=== PATIENT | female | born 1995 | race Caucasian/White ===

== ENCOUNTER 2020-10-10 16:51 | Outpatient (CLI) | payer MEDICAID, SELFPAY ==
[2020-10-10] VITALS (7 sets, daily range): BP systolic 0–127; BP diastolic 0–71; PULSE 93–101; RESP 17; TEMP 36.6; BMI 47.5
[2020-10-10 17:32] LABS: Add Urine Microscopic? NO
[2020-10-10 17:48] LABS: Basophils % 0.1 %; Eosinophils % 0.5 %; Hematocrit 36.3 % (37.0-47.0); Hemoglobin 11.7 g/dL (11.5-15.3); Lymphocytes # 1.3 10^3/uL (0.8-4.8); Lymphocytes % 14.9 %; Mean Corpuscular HGB Conc 32.2 g/dL (30.0-36.0); Mean Corpuscular Hemoglobin 25.8 pg (28.0-34.0); Mean Platelet Volume 12.1 fL (7.4-10.4); Monocytes # 0.6 10^3/uL (0.2-0.9); Monocytes % 7.4 %; Neutrophils # 6.38 10^3/uL (1.8-7.7); Neutrophils % 76.3 %; Nucleated Red Blood Cells % 0 %; Platelet Count 232 10^3/cmm (130-400); Red Blood Count 4.54 10^6/uL (4.1-5.3); Red Cell Distribution Width 14.3 % (12.1-15.1); White Blood Count 8.4 10^3/uL (4.0-10.0)
[2020-10-10 17:52] LABS: Bilirubin Urine Neg (Negative); Blood Urine Neg (Negative); Glucose Urine UA Norm (Normal); Ketones Urine 1+ (Negative); Nitrate Urine Negative (Negative); Protein Urine Neg (Negative); Specific Gravity, Urine 1.025 (1.005-1.030); Urine Appearance SL Hazy (CLEAR); Urine Color Yellow (Yellow); pH Urine 5 (5-7)
[2020-10-10 17:53] LABS: Add Urine Culture? No; Bacteria Urine TRACE /hpf; Leukocyte Esterase Urine Negative (Negative); Urobilinogen Urine 1 mg/dL (Negative); WBC Urine 0-4 /hpf (0-5)
[2020-10-10 17:59] LABS: Alanine Aminotransferase 22 U/L (0-33); Albumin Level 3.4 g/dL (3.5-5.2); Alkaline Phosphatase 188 IU/L (35-105); Anion Gap 15.2 (5-19); Aspartate Amino Transferase 26 U/L (0-32); Blood Urea Nitrogen 8 mg/dL (6-20); Calcium 9.3 mg/dL (8.5-10.5); Carbon Dioxide 21 mmol/L (22-29); Chloride 105 mmol/L (98-107); Globulin 2.7 g/dL (1.3-4.6); Glomerular Filtration Rate 149.1 mL/min (90-130); Glucose 110 mg/dL (65-115); Osmolality Calculated 283 mOsm/kg (285-295); Potassium 4.2 mmol/L (3.5-5.1); Sodium 137 mmol/L (136-145); Total Bilirubin 0.2 mg/dL (0.15-1.2); Total Protein 6.1 g/dL (6.6-8.7); Uric Acid 5.8 mg/dL (2.4-5.7)
[2020-10-10 18:02] LABS: Urine Creatinine 222 mg/dL (28-217)
[2020-10-10 18:04] LABS: Urine Protein Random 23 mg/dL
--- NOTE | 2020-10-10 18:27 | PC.NURSE ---
THIS GAS STATION ATTENDANT TALKED WITH PT AND HER MOTHER AND TOLD THEM TO CALL DR. DURAN'S OFFICE TOMORROW AND MAKE APPOINTMENT FOR SATURDAY NEXT WEEK FOR FOLLOW UP AND SO THAT THEY CAN SCHEDULE HER SECTION. REINFORCED THE IMPORTANCE OF THIS AND THEY BOTH VOICED UNDERSTANDING AND I TOLD THEM IF THEY HAVE TROUBLE TO CALL ME HERE IN OB AND I WOULD HELP HER MAKE APPOINTMENT.
== END 2020-10-10 18:21 | disposition home or self-care (01) ==
LOC: OPOB 16:59 → OBGYN 10-11 07:48
PROVIDERS: PCP Family Medicine; Visit Provider Family Medicine
DX: O16.9 Unspecified maternal hypertension, unspecified trimester (principal)
CPT/HCPCS: 36415; 59025; 80053; 81001; 81003; 82570; 84156; 84550; 85025; 99211

== ENCOUNTER 2020-10-29 22:13 | Inpatient (IN) | payer MEDICAID, SELFPAY ==
[2020-10-29 22:19] VITALS: BMI 48.8
[2020-10-29 23:01] LABS: Basophils % 0.1 %; Eosinophils % 0.5 %; Hematocrit 35.2 % (37.0-47.0); Hemoglobin 11.6 g/dL (11.5-15.3); Lymphocytes # 1.4 10^3/uL (0.8-4.8); Lymphocytes % 17.6 %; Mean Corpuscular Hemoglobin 25.8 pg (28.0-34.0); Mean Corpuscular Volume 78.4 fL (81-99); Mean Platelet Volume 11.8 fL (7.4-10.4); Monocytes # 0.6 10^3/uL (0.2-0.9); Monocytes % 7.2 %; Neutrophils # 5.78 10^3/uL (1.8-7.7); Nucleated Red Blood Cells % 0 %; Platelet Count 216 10^3/cmm (130-400); Red Blood Count 4.49 10^6/uL (4.1-5.3); Red Cell Distribution Width 15.2 % (12.1-15.1); White Blood Count 7.8 10^3/uL (4.0-10.0)
--- NOTE | 2020-10-29 23:04 | P.ANESASSM_ITS ---
Pre-Anesthetic Assessment Pre-Anesthetic Assessment: Height/Weight: Height 1.57 m Preop Diagnosis: previous Proposed Procedure: Was Beta Kurt taken within 24 hours: N/A Social: Social History: No alcohol and No tobacco Exam: Pre-Anes Outpt Exam: alert, oriented x 3, clear to auscultation bilaterally and regular rate & rhythm Airway: Submandibular: WNL Cervical ROM: WNL MP: 3 Dentition: Full Pulmonary: Pulmonary: None reported CV/HEM: CV/HEM: HTN (Early in this but resolved and on no meds for HTN) : : None reported Hepatic: Hepatic: None reported GI: GI: GERD Musc/skel: Musc/skel: None reported Neuropsych: Neuropsych: Anxiety Anesthetic Plan: ASA status: 2 Anesthesia: Eval. for regional block and Regional (specify below) Risk of > 500 ml blood loss (7ml/kg in children): Yes, adequate IV access and fluids planned Data Anesthesia CBC & Chem 7: 10/29/20 22:40 Other Labs: Laboratory Results - last 48 hr 10/29/20 22:40 WBC 7.8 RBC 4.49 Hgb 11.6 Hct 35.2 L MCV 78.4 L MCH 25.8 L MCHC 33.0 RDW 15.2 H Plt Count 216 MPV 11.8 H Neut % (Auto) 74.0 Lymph % (Auto) 17.6 [place] % (Auto) 7.2 Eos % (Auto) 0.5 Baso % (Auto) 0.1 Neut # (Auto) 5.78 Lymph # (Auto) 1.4 [place] # (Auto) 0.6 Eos # (Auto) 0.0 Baso # (Auto) 0.0 Nucleated RBC % (auto) 0 Nucleated RBCs # 0.0 Cardiac Studies: No Data to Display
--- NOTE | 2020-10-29 23:14 | P.HP_ITS ---
Providers/Chief Complaint Admitting Physician: Madeline Landis MD Primary Care Provider: Madeline Landis MD Chief Complaint: PROM History of Present Illness Brina Loyd is a 25 year old female G5, P3 at 40 weeks 1 day gestation who presented to labor and delivery complaining of leaking fluid. She has a scheduled repeat section with bilateral tubal ligation on Saturday. She had insufficient care -not showing up for multiple visits reportedly due to a lack of having a vehicle. She states that her water broke around 2100 this evening. She is not having any contractions. She has good movement. Review of Systems Eyes: Denies: change in vision or eye discomfort ENMT: Denies: throat pain or hoarseness Card: Reports: swelling of feet/ankles; Denies: chest pain or palpitations Resp: Denies: dyspnea, productive cough or non-productive cough GI: Denies: abdominal pain, nausea or vomiting : Reports: vaginal discharge (Clear fluid); Denies: flank pain Musc: Reports: back pain; Denies: extremity pain or limited range of motion Skin/Breast: Denies: rash Neuro: Denies: lack of coordination or behavioral changes Psych: Denies: change in appetite Endo: Reports: tired all the time; Denies: polyuria or polydipsia PFSH Acute PFSH: Medical History (Updated 10/29/20 @ 23:43 by Madeline Landis MD) Anxiety and depression Surgical History (Updated 10/29/20 @ 23:19 by Madeline Landis MD) Hx laparoscopic cholecystectomy Previous section Female Reproductive History: : 5 Para: 3 Spontaneous abortions: Yes Other female reproductive history: The patient's BRANDEN is 10/28/2020 by an 11-week 4-day ultrasound. She presented to labor and delivery complaining of loss of fluid. She felt like her water broke around 2100 hrs. this evening. She has had no contractions. She has had good movement. She has had no bleeding. She has had insufficient care and just had her Covid swab and scheduled at her visit 2 days ago. For this reason her Covid swab is not yet resulted. She is GBS negative Vitals/I&O/Wt Weight last 48 hrs Weight 267 lb Physical Exam HENMT: COMMON NORMALS: normocephalic and atraumatic Eye: COMMON NORMALS: Equal, round and reactive pupils present and EOMs intact bilaterally GENERAL EYE: appearance normal, both eyes and all related structures Lymph: LYMPHATIC: lymphadenopathy Chest: COMMONS NORMALS: normal inspection of the chest Resp: COMMON NORMALS: normal respiratory effort and clear to auscultation bilaterally Cardio: COMMON NORMALS: regular rate and regular rhythm GI: COMMON NORMALS: non-tender INSPECTION: Yes normal to inspection and Yes other (Gravid) Extremity: GENERAL: Yes normal exam except as noted and Yes edema Neuro: SENSORIUM/ORIENTATION: Yes alert, Yes oriented to person and Yes oriented to place Psych: COMMON NORMALS: mental status grossly normal and normal affect ATTITUDE: Yes calm Data : 10/29/20 22:40 A&P Assessment and plan (1) Previous section: Plan for repeat section Status: Acute (2) Anxiety and depression: Controlled on Lexapro Status: Acute (3) with insufficient care: Patient refused to do her glucose tolerance test. She missed many [facility] visits reportedly due to lack of transportation. She claims to have done her 4 times daily glucose monitoring at home but I never saw a record of this for physical evidence on her fingertips. Status: Acute (4) Encounter for sterilization: Patient still desires permanent surgical sterilization Status: Acute (5) Post-term , 40-42 weeks of gestation: Status: Acute (6) SROM (spontaneous rupture of membranes): Patient has a history of prior section so we will plan to proceed with repeat section Status: Acute Attestations Medical Necessity Statement*: Routine surgery and postoperative care Coding Level of Care Code Acute Personal Care Aide for [facility] Fwd Exam Comprehensive Diagnoses Previous section Z98.891 Anxiety and depression F41.9; F32.9 with insufficient care O09.30 Encounter for sterilization Z30.2 Post-term , 40-42 weeks of gestation O48.0 SROM (spontaneous rupture of membranes)
[2020-10-29] MEDS: metoclopramide 5 mg/mL SDV 2 mL 10 MG IVP (23:15)
[2020-10-29] MEDS: citric acid-sodium citrate 30 mL UDC PO (23:15)
[2020-10-29] MEDS: famotidine 20 mg/2 mL INJ IVP (23:15)
[2020-10-30] VITALS (26 sets, daily range): BP systolic 112–145; BP diastolic 56–83; PULSE 60–102; RESP 14–21; TEMP 36.3–36.9; O2SAT 93–98
--- NOTE | 2020-10-30 01:03 | P.OP_ITS ---
Operative Report Date of procedure: October 30, 2020 Pre-op Diagnosis: previous Pre-op Diagnosis: IUP at 40 weeks 1 day gestation with SROM Post-op diagnosis: same Procedure Done: Repeat low transverse section Via Pfannenstiel skin incision Bilateral tubal ligation Specimens removed/disposition: Vertex female 3460gm , 7 pounds 10 ounces, Apgars 9 and 9 Pathology: Segments of right and left fallopian tubes Anesthesia: Other (Spinal) Estimated blood loss (mL): 300 IV fluids (mL): 1,500 Urine output (mL): 150 Complications: None Condition: stable Disposition: floor Procedure: After informed consent the patient was taken to the main OR where spinal anesthesia was administered. She was prepped and draped in normal sterile fashion in dorsal supine position with a left lateral tilt. After verifying adequate spinal anesthesia a Pfannenstiel skin incision was made through the previous scar and carried through to the underlying layer of fascia sharply. The fascial incision was then extended laterally using the Mayos. Fas jus was grasped with Mu clamps. The rectus muscles were dissected off taking care to avoid injury to the underlying tissue. The peritoneum was then entered bluntly and the incision site was manually stretched. The bladder blade was inserted. The vesicouterine peritoneum was identified and entered sharply using the Metzenbaums. The bladder flap was then created digitally. The bladder blade was then reinserted. Uterine incision was made in a transverse fashion in the lower uterine segment. Amniotic rupture of membranes was performed using an Allis clamp and there was clear fluid noted. The 's head was delivered atraumatically followed by immediate delivery of the rest of the without complication. The was suctioned at delivery and the cord was clamped and cut. The was handed to the waiting pediatric nurse. The placenta was then delivered using fundal pressure. The uterus was then exteriorized from the abdomen and a dry sponge was used to clear the uterus of clots and debris. The bladder blade was reinserted and the uterine incision was repaired using 0 chromic in a running fashion. A second layer of the same suture was used in an imbricating manner. The right fallopian tube was then grasped with a Anna and a proximal portion of the tube was ligated and excised. Cut portions of the tube were coagulated using the Bovie and there was good hemostasis. Tubal ostia were seen. Segment of tube was sent to pathology. The left fallopian tube was then grasped with a [place] and a midportion of the tube was ligated and excised. The cut portions of the tube were coagulated using the Bovie. Tubal ostia were identified. Section of the tube was sent to pathology. The uterus was then returned to the abdomen. Irrigation was used to clear the gutters of clots and debris. Uterine incision was inspected for hemostasis. There was a small amount of bleeding from the bladder flap that was coagulated using the Bovie. The peritoneum was then reapproximated using 4-0 Vicryl in a running fashion. The subfascial tissue was inspected for hemostasis and any small bleeders were coagulated using the Bovie. The fascia was then reapproxi mated using 0 Vicryl in a running fashion. Irrigation was then used to cleanse the subcutaneous tissue. Any small bleeders were coagulated using the Bovie and the subcutaneous tissue was reapproximated using 4-0 Vicryl in a running fashion. The skin was then reapproximated using 4-0 Vicryl on a Rohit needle. Steri-Strips and a pressure bandage were applied and patient went to recovery in stable condition Sponge instrument and needle counts were correct
--- NOTE | 2020-10-30 01:30 | P.PCN_ITS ---
PACU note PACU note: VSS, Good respiratory effort, report to ENRICHMENT TEACHER Post-Anesthesia Exam: awake Disposition: back to floor
--- NOTE | 2020-10-30 01:30 | PM.PACU ---
PACU note PACU note: VSS, Good respiratory effort, report to ENVIRONMENTAL STUDIES FACULTY MEMBER Post-Anesthesia Exam: awake Disposition: back to floor
[2020-10-30] MEDS: dextrose 5%-lactated ringers 1,000 ML 125 ML IV ×2 (03:30→10:40)
[2020-10-30] MEDS: promethazine 25 mg Tablet 12.5 MG PO (03:30)
--- NOTE | 2020-10-30 06:27 | PC.NURSE ---
DFS CONTACTED FOR INSUFFICIENT CARE. [facility] COD CLERK WILL BE FOLLOWING UP BEFORE DISCHARGE.
[2020-10-30] MEDS: ketorolac 30 mg/mL INJ IVP (07:06)
--- NOTE | 2020-10-30 09:13 | ANE.PACU2 ---
Inpatient post-anesthesia follow up: Airway intact: Yes Vital signs: Temperature 98.4 F Pulse Rate 82 Respiratory Rate 16 Blood Pressure 118/73 Pulse Oximetry 97 Oxygen Delivery Me thod Room Air Oxygen Flow Rate Fraction of Inspir ed Oxygen Hydration adequate: Yes Nausea and vomiting: Yes (Some nausea, seemed controlled) Pain level: 2 Mental status: Baseline
[2020-10-30 14:04] LABS: Hematocrit 32.3 % (37.0-47.0); Hemoglobin 10.3 g/dL (11.5-15.3); Mean Corpuscular HGB Conc 31.9 g/dL (30.0-36.0); Mean Corpuscular Hemoglobin 25.6 pg (28.0-34.0); Mean Corpuscular Volume 80.3 fL (81-99); Mean Platelet Volume 11.8 fL (7.4-10.4); Platelet Count 181 10^3/cmm (130-400); Red Blood Count 4.02 10^6/uL (4.1-5.3); Red Cell Distribution Width 15.4 % (12.1-15.1); White Blood Count 9.3 10^3/uL (4.0-10.0)
[2020-10-30] MEDS: ibuprofen 800 mg tablet PO (16:38)
[2020-10-30] MEDS: docusate sodium 100 mg Capsule PO (18:15)
[2020-10-30] MEDS: ferrous sulfate EC 325 mg Tablet PO (18:15)
[2020-10-30] MEDS: acetaminophen 325 mg Tablet 650 MG PO (23:45)
[2020-10-31 04:11] VITALS: BP 120/75; PULSE 93; RESP 14; TEMP 36.8
[2020-10-31] MEDS: ferrous sulfate EC 325 mg Tablet PO (07:18)
[2020-10-31] MEDS: prenatal vitamin Capsule 1 CAP PO (07:18)
[2020-10-31] MEDS: ibuprofen 800 mg tablet PO ×3 (07:19→21:21)
[2020-10-31] MEDS: docusate sodium 100 mg Capsule PO ×2 (07:19→17:36)
[2020-10-31 10:00] VITALS: BP 129/83; PULSE 98; RESP 16; TEMP 36.7; O2SAT 97
--- NOTE | 2020-10-31 12:33 | P.PN_ITS ---
Subjective Subjective: Interval history: Postop day #1 doing well. Patient is voiding, passing gas, tolerating a regular diet. Vitals/I&O/Wt Last Vital Signs Temp 98.1 F 10/31/20 10:00 Pulse 98 10/31/20 10:00 Resp 16 10/31/20 10:00 BP 129/83 10/31/20 10:00 Pulse Ox 97 10/31/20 10:00 10/30/20 10/31/20 10/31/20 22:59 06:59 14:59 Output Total 1150 / 1450 1600 / 3050 Balance -1150 / -387.500 -1600 / -1987.500 Weight last 48 hrs Weight 267 lb Physical Exam Const: COMMON NORMALS: no acute distress GENERAL APPEARANCE: cooperative and comfortable HENMT: COMMON NORMALS: normocephalic HEAD & SCALP: normocephalic Resp: COMMON NORMALS: normal respiratory effort Cardio: COMMON NORMALS: regular rate and regular rhythm RATE: regular rate RHYTHM: regular rhythm GI: COMMON NORMALS: Soft to palpation INSPECTION: Yes incision (Steri- Strips rather moist otherwise clean and intact) and No GI erythema present PALPATION: Yes Soft to palpation and Yes Tenderness to palpation present (GI) (Appropriate postoperative) Extremity: GENERAL: Yes edema Urinary Catheter Management^: Umanzor: Cath Placed During This Visit: yes, but has since been removed by the nurse Reason for Continuing Indwelling Catheter: Decision to DC Catheter Urinary Catheter Date of Insertion: 10/30/20 Urinary Catheter Time of Insertion: 00:00 Date Urinary Catheter Removed: 10/30/20 Time Urinary Catheter Discontinued: 16:41 Data : 10/30/20 13:35 A&P Assessment and plan (1) Status post repeat low transverse section: Postop day #1 doing well. Continue routine care Status: Acute (2) Encounter for sterilization: Status: Acute Attestations Medical Necessity Statement*: Routine postoperative care Coding Level of Care Code Acute Motor Route Carrier for Molly Fwd Diagnoses Status post repeat low transverse section Z98.891 Encounter for sterilization Z30.2
[2020-10-31] MEDS: lanolin oint 7 gm 1 APPLIC TOPICAL (15:47)
[2020-10-31 15:48] VITALS: BP 117/78; PULSE 88; RESP 16; TEMP 36.7; O2SAT 95
[2020-10-31] MEDS: acetaminophen 325 mg Tablet 650 MG PO (17:35)
[2020-10-31 22:07] VITALS: BP 122/81; PULSE 72; RESP 16; TEMP 36.8
[2020-11-01 04:11] VITALS: BP 112/76; PULSE 82; RESP 14; TEMP 36.9
[2020-11-01] MEDS: docusate sodium 100 mg Capsule PO (09:05)
[2020-11-01] MEDS: ibuprofen 800 mg tablet PO (09:05)
[2020-11-01] MEDS: prenatal vitamin Capsule 1 CAP PO (09:05)
[2020-11-01 10:47] VITALS: BP 114/79; PULSE 106; RESP 16; TEMP 36.7
--- NOTE | 2020-11-01 12:30 | PM.OBGYDC ---
Discharge Providers LABORATORY ANIMAL FACILITY SUPERVISOR Date of Admission: 10/29/20 22:13 Date of Discharge: 11/01/20 Attending Provider at Admission: Madeline Landis MD Attending Provider at Discharge: Madeline Landis MD Primary Care Provider: Madeline Landis MD Diagnoses at Discharge Discharge Diagnosis (1) Status post repeat low transverse section: Status: Acute (2) Encounter for sterilization: Status: Acute Reason for Visit Reason for Visit: PROM Hospital Course Hospital Course This is a 25-year-old G5 now P4 who had spontaneous rupture of membranes. She underwent a repeat low transverse section along with a bilateral tubal ligation. Postoperatively she did well. She was ambulating, tolerating a regular diet, had good pain control with just ibuprofen and was requesting discharge home. Information Peripartum Data: Delivery Method: Section Physical Exam Const: COMMON NORMALS: no acute distress GENERAL APPEARANCE: cooperative and comfortable GI: COMMON NORMALS: Soft to palpation INSPECTION: Yes incision (Clean and intact, Steri-Strips moist) PALPATION: Yes Soft to palpation, No Tenderness to palpation present (GI) and No Guarding due to palpation present (GI) Extremity: COMMON NORMALS: negative for no calf tenderness GENERAL: Yes edema Urinary Catheter Management^: Umanzor: Cath Placed During This Visit: yes, but has since been removed by the nurse Reason for Continuing Indwelling Catheter: Decision to DC Catheter Urinary Catheter Date of Insertion: 10/30/20 Urinary Catheter Time of Insertion: 00:00 Date Urinary Catheter Removed: 10/30/20 Time Urinary Catheter Discontinued: 16:41 Discharge Data Data Completed and Pending: Pending at discharge Category Date Time Status Pathology: Surgic al [PTH] Routine Pth 10/30/20 02:22 Received Vitals: Last Vital Signs Temp 98.0 F 11/01/20 10:47 Pulse 106 H 11/01/20 10:47 Resp 16 11/01/20 10:47 BP 114/79 11/01/20 10:47 Pulse Ox 95 10/31/20 15:48 Discharge Plan Discharge Patient Disposition: Home Condition: Stable Prescriptions: New ibuprofen 800 mg Tablet 800 mg PO TID PRN (Reason: Abdominal Pain) Qty: 40 RF: 0 DOK 100 mg Capsule 100 mg PO BID Qty: 60 RF: 0 Continued Lexapro 1 tab PO DAILY RF: 0 Discharge Orders: Discharge Order (Routine); Ordered 11/01/20 Ordered By: Madeline Landis Discharge Diet: Usual diet Discharge Activity: Limit activity as instructed Patient Instructions: Bleeding (DC), OB Discharge Report, OB Food/Drug Interaction Guide, OB Home Care, OB Proud Parent Packet, OB Vaginal Deliveries Discharge Attestations LABORATORY ANIMAL FACILITY SUPERVISOR Time Spent in Discharge Care*: less than 30 min Coding Level of Care Code Acute Drywall Foreman for Chg Fwd Diagnoses Status post repeat low transverse section Z98.891 Encounter for sterilization Z30.2
[2020-11-01 13:08] VITALS: BP 111/74; PULSE 97; RESP 16; TEMP 36.9
== END 2020-11-01 14:05 | disposition home or self-care (01) | DRG 785 ==
LOC: OPOB 22:14 → OBGYN 22:14
PROVIDERS: Admitting Provider Family Medicine; PCP Family Medicine; Visit Provider Family Medicine
PROC: (CPT 59514; principal; 2020-10-29 23:20)
DX: O42.02 Full-term premature rupture of membranes, onset of labor within 24 hours of rupture (principal); Z3A.40 40 weeks gestation of pregnancy; Z37.0 Single live birth; O65.5 Obstructed labor due to abnormality of maternal pelvic organs; O34.211 Maternal care for low transverse scar from previous cesarean delivery; N85.8 Other specified noninflammatory disorders of uterus; Z30.2 Encounter for sterilization; Z20.828 Contact with and (suspected) exposure to other viral communicable diseases; O99.344 Other mental disorders complicating childbirth; F41.8 Other specified anxiety disorders
CPT/HCPCS: 36415; 51702; 59409; 83986; 85025; 85027; 88302; 96375; 99211; J0690; J1885; J2274; J2405; J2765; J3490; Q0169

== ENCOUNTER 2022-04-20 12:38 | Observation (INO) | payer MEDICAID, SELFPAY ==
[2022-04-20 12:47] VITALS: BP 118/82; PULSE 86; RESP 13; TEMP 36.9; O2SAT 97; BMI 48.4
--- NOTE | 2022-04-20 13:01 | W.ED.PSYCHS ---
HPI - Psych General: Chief Complaint: Psychiatric Symptoms Stated Complaint: Mental Health Time Seen by Provider: 04/20/22 12:57 History of Present Illness: Patient is a 26-year-old female comes to the ED for SI. She has a history of anxiety and depression and is currently taking sertraline and hydroxyzine. Patient is currently under a lot of stress at home. She has 6 kids and one of the kids has a physical disability and one of her sons has had a lot of behavioral and social issues and has been causing a lot of stress. She feels like her depression and anxiety has been slowly getting worse since 2019. She endorses having thoughts of suicide and has a plan of either overdosing on meds or cutting wrist. For the past couple weeks she was sleeping a lot more and had a loss of interest and no motivation throughout the day. For the past couple days she states she is sleeping less now. Denies any drug or alcohol use. Associated symptoms: Reports depression and suicidal ideation Review of Systems Const: Denies: fever(s), chills or fatigue Eyes: Denies: change in vision or eye discomfort ENMT: Denies: throat pain, odynophagia, nasal discharge or nasal congestion Card: Denies: chest pain, palpitations, edema, swelling of feet/ankles, dyspnea on exertion or orthopnea Resp: Denies: dyspnea, productive cough or non-productive cough GI: Denies: abdominal pain, nausea, vomiting, diarrhea, constipation or hematochezia : Denies: flank pain, dysuria or hematuria Musc: Denies: neck pain, back pain or extremity swelling Skin/Breast: Denies: rash or new lesions Neuro: Denies: headache(s), numbness in extremities or weakness in extremities Psych: Reports: anxiety, depression, sleeping less, loss of interest, change in appetite (Decreased appetite) and suicidal ideation [facility] ED PFSH: Medical History Anxiety and depression Surgical History Hx laparoscopic cholecystectomy Previous section Female Reproductive History: Para: 3 Spontaneous abortions: Yes Physical Exam Const: COMMON NORMALS: patient oriented x3 and alert GENERAL APPEARANCE: cooperative HENMT: COMMON NORMALS: normocephalic HEAD & SCALP: normocephalic MOUTH: Normal oral and palatal mucosa present THROAT: posterior oropharynx normal and uvula midline Neck/C-Spine: COMMON NORMALS: supple GENERAL: Yes normal visual inspection Resp: COMMON NORMALS: normal respiratory effort, No retractions, No use of accessory muscles and clear to auscultation bilaterally AUSCULTATION: clear to auscultation bilaterally Cardio: COMMON NORMALS: regular rate, regular rhythm, S1 normal heart sound present, S2 normal heart sound present, No gallops present (Cardio), No clicks present (Cardio), No murmurs present (Cardio) and Peripheral pulses 2+ throughout RATE: regular rate RHYTHM: regular rhythm HEART SOUNDS: S1 normal heart sound present and S2 normal heart sound present PERIPHERAL PULSES: Peripheral pulses 2+ throughout GI: COMMON NORMALS: Normal to inspection, nondistended, normoactive bowel sounds present, Soft to palpation, non-tender and no masses PALPATION: Yes Soft to palpation : COMMON NORMALS: Yes no CVA tenderness BLADDER/KIDNEY EXAM: Yes no CVA tenderness Back/Pelvis: COMMON NORMALS: no CVA tenderness Extremity: COMMON NORMALS: normal to inspection and no pedal edema Neuro: COMMON NORMALS: patient oriented x3 and moves all extremities SENSORIUM/ORIENTATION: Yes alert Psych: COMMON NORMALS: mental status grossly normal, Normal thought process present and speech normal APPEARANCE: Yes grossly normal ATTITUDE: Yes calm ACTIVITY/MOTOR BEHAVIOR: Yes appropriate eye contact SPEECH: Yes normal speech MOOD & AFFECT: Yes sad and Yes tearful THOUGHT PROCESS: Normal thought process present THOUGHT CONTENT: Yes Suicidality present ATTENTION/CONCENTRATION: Yes attention grossly intact and Yes concentration grossly intact MEMORY/COGNITION: Yes memory grossly intact and Yes cognition grossly intact Skin: GENERAL SKIN EXAM: dry skin Course Consultations: Consultation #1: I contacted Dr. Rubin and told him about patient case. He agreed to have patient admitted to the NPU. Vital Signs: Vital signs: Vital Signs Temperature 98.5 F 04/20/22 12:47 Pulse Rate 86 04/20/22 12:47 Respiratory Rate 13 04/20/22 12:47 Blood Pressure 118/82 04/20/22 12:47 Pulse Oximetry 97 04/20/22 12:47 MDM - Psych Medical Decision Making Patient is a 26-year-old female comes to the ED with SI. Prescreening labs performed patient is medically cleared for admission to the NPU. I contacted Dr. Rubin and told him about patient case and he agreed to have patient admitted to NPU. Dr. Varghese notified and he placed the admitting orders. Lab Data I reviewed the patient's lab results. : 04/20/22 13:25 04/20/22 13:25 Laboratory Results Urine Color Yellow (Yellow) 04/20/22 12:25 Urine Appearance Sl hazy (CLEAR) 04/20/22 12:25 Urine pH 7 (5-7) 04/20/22 12:25 Ur Specific [place] 1.010 (1.005-1.030) 04/20/22 12:25 Urine Protein Neg (Negative) 04/20/22 12:25 Urine Glucose (UA) Norm (Normal) 04/20/22 12:25 Urine Ketones Negative (Negative) 04/20/22 12:25 Urine Blood Neg (Negative) 04/20/22 12:25 Urine Nitrate Negative (Negative) 04/20/22 12:25 Urine Bilirubin Neg (Negative) 04/20/22 12:25 Urine Urobilinogen Norm mg/dL (Negative) 04/20/22 12:25 Ur Leukocyte Esterase 1+ (Negative) H 04/20/22 12:25 Urine RBC 0-4 /hpf (0-2) H 04/20/22 12:25 Urine WBC 15-25 /hpf (0-5) H 04/20/22 12:25 Ur Squamous Epith Cells 5-10 /hpf (0-5) H 04/20/22 12:25 Amorphous Sediment 2+ /hpf 04/20/22 12:25 Urine Bacteria 2+ /hpf (NONE) H 04/20/22 12:25 Urine Mucus 1+ /hpf 04/20/22 12:25 Urine Opiates Screen Negative ng/mL (Negative) 04/20/22 12:25 Ur Barbiturates Screen Negative ng/mL (Negative) 04/20/22 12:25 Ur Phencyclidine Scrn Negative ng/mL (Negative) 04/20/22 12:25 Ur Amphetamines Screen Negative ng/mL (Negative) 04/20/22 12:25 U Benzodiazepines Scrn Negative ng/mL (Negative) 04/20/22 12:25 Urine Cocaine Screen Negative ng/mL (Negative) 04/20/22 12:25 U Marijuana (THC) Screen Negative ng/mL (Negative) 04/20/22 12:25 Discharge Plan Discharge Patient Disposition: Admitted As Inpatient Admit Provider: [place]ura Rubin Clinical Impression: Suicidal ideation Condition: Stable Coding Level of Care Code ED Operating Cost Clerk for Chg Fwd Exam Comprehensive
[2022-04-20 13:33] LABS: Basophils % 0.5 %; Eosinophils # 0.2 10^3/uL (0.0-0.8); Eosinophils % 2.2 %; Hematocrit 44.2 % (37.0-47.0); Hemoglobin 14.3 g/dL (11.5-15.3); Lymphocytes # 2.1 10^3/uL (0.8-4.8); Lymphocytes % 27.7 %; Mean Corpuscular HGB Conc 32.4 g/dL (30.0-36.0); Mean Corpuscular Hemoglobin 26.5 pg (28.0-34.0); Mean Platelet Volume 10.7 fL (7.4-10.4); Monocytes # 0.5 10^3/uL (0.2-0.9); Monocytes % 6.2 %; Neutrophils # 4.67 10^3/uL (1.8-7.7); Nucleated Red Blood Cells % 0 %; Platelet Count 337 10^3/cmm (130-400); Red Blood Count 5.39 10^6/uL (4.1-5.3); Red Cell Distribution Width 13.5 % (12.1-15.1); White Blood Count 7.4 10^3/uL (4.0-10.0)
[2022-04-20 13:43] LABS: HCG, Serum Qual Negative (Negative)
[2022-04-20 13:50] LABS: Add Urine Microscopic? YES; Bilirubin Urine Neg (Negative); Blood Urine Neg (Negative); Glucose Urine UA Norm (Normal); Ketones Urine Negative (Negative); Leukocyte Esterase Urine 1+ (Negative); Nitrate Urine Negative (Negative); Protein Urine Neg (Negative); Urine Appearance SL Hazy (CLEAR); Urine Color Yellow (Yellow); Urobilinogen Urine Norm (Negative); pH Urine 7 (5-7)
[2022-04-20 13:51] LABS: Add Urine Culture? Yes; Amorphous Sediment Urine 2+ /hpf; Bacteria Urine 2+ /hpf; Mucus Urine 1+ /hpf; RBC Urine 0-4 /hpf (0-2); WBC Urine 15-25 /hpf (0-5)
[2022-04-20 13:53] LABS: Amphetamines Screen Urine Negative (Negative); Barbiturates Screen Urine Negative (Negative); Benzodiazepines Screen Urine Negative (Negative); Cocaine Screen Urine Negative (Negative); Opiate Screen Urine Negative (Negative); PCP Screen Urine Negative (Negative); THC Screen Urine Negative (Negative)
[2022-04-20 13:53] LABS: Acetaminophen < 5.0 ug/mL (10-30); Alanine Aminotransferase 51 U/L (0-33); Albumin Level 4.5 g/dL (3.5-5.2); Alcohol Level 10 mg/dL (0-10); Alkaline Phosphatase 94 IU/L (35-105); Anion Gap 13.1 (5-19); Aspartate Amino Transferase 34 U/L (0-32); Blood Urea Nitrogen 13 mg/dL (6-20); Calcium 10.2 mg/dL (8.5-10.5); Carbon Dioxide 29 mmol/L (22-29); Chloride 104 mmol/L (98-107); Creatinine Clr Calc Pharmacy 148.9171; Globulin 3.1 g/dL (1.3-4.6); Glomerular Filtration Rate 100.4 mL/min (90-130); Glucose 104 mg/dL (65-115); Osmolality Calculated 294 mOsm/kg (285-295); Potassium 4.1 mmol/L (3.5-5.1); Salicylate < 0.3 mg/dL (3-10); Sodium 142 mmol/L (136-145); Total Bilirubin 0.3 mg/dL (0.15-1.2); Total Protein 7.6 g/dL (6.6-8.7)
[2022-04-20 15:09] VITALS: BP 149/84; PULSE 82; RESP 18; TEMP 36.6; O2SAT 98
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
[2022-04-20 20:24] VITALS: BP 111/74; PULSE 90; RESP 17; O2SAT 97
[2022-04-21 06:00] VITALS: BP 128/86; PULSE 70; RESP 18; O2SAT 96
[2022-04-21] MEDS: sertraline 100 mg Tablet PO (08:44)
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
[2022-04-21 13:28] VITALS: BP 121/81; PULSE 94; RESP 17; TEMP 36.9; O2SAT 97
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
[2022-04-21 16:50] VITALS: BP 121/81; PULSE 94; RESP 17; TEMP 36.9; O2SAT 97
[2022-04-21] MEDS: buPROPion XL (24 HR) 150 mg Tablet PO (16:55)
--- NOTE | 2022-04-24 08:32 | PC.OT ---
OT EVALUATION ORDERS RECEIVED. PATIENT DISCHARGED BEFORE EVALUATION COULD BE COMPLETED.
== END 2022-04-21 17:17 | disposition home or self-care (01) ==
LOC: ER 13:22 → NP 14:36
PROVIDERS: Admitting Provider Psychiatry & Neurology Psychiatry; Emergency Provider Physician Assistant; PCP Family Medicine; Visit Provider Psychiatry & Neurology Psychiatry
DX: R45.851 Suicidal ideations (principal); Z62.820 Parent-biological child conflict; F33.9 Major depressive disorder, recurrent, unspecified; F41.9 Anxiety disorder, unspecified; E66.9 Obesity, unspecified; Z68.42 Body mass index [BMI] 45.0-49.9, adult
CPT/HCPCS: 80053; 80306; 80307; 81001; 84703; 85025; 87086; 99285; G0378

== ENCOUNTER → 2023-03-28 11:49 | Outpatient (BNVA) | payer MEDICAID, SELFPAY | PROVIDERS: PCP Family Medicine; Visit Provider Nurse Practitioner | DX: K52.9 Noninfective gastroenteritis and colitis, unspecified (principal) | CPT/HCPCS: 87177; 87209; 87493; 87506 ==

== ENCOUNTER 2024-12-01 15:34 | Outpatient (CLI) | payer MEDICAID, SELFPAY ==
--- NOTE | 2024-12-01 16:00 | MR_ITS ---
WS: [id number] MRI HEAD WITHOUT CONTRAST TECHNIQUE: Sagittal T1, T2 axial, T2 axial FLAIR, axial and coronal T1 images, axial susceptibility w eighted imaging, axial diffusion weighted images, and coronal T2 images were obtained. CLINICAL INFORMATION: G43.109 - Migraine with aura, not intractable, without st... COMPARISON: None. FINDINGS: No evidence of restricted diffusion to suggest acute ischemia. Ventricular system and basal cisterns are patent. Normal posterior fossa. Normal vascular flow voids at the skull base. No extra-axial flu id collections. No mass or mass effect. No suspicious intracranial signal abnormalities. Minimal cere bellar tonsillar ectopia. Normal fourth ventricle. No hydrocephalus. No hemosiderin on the susceptibly weighted images. Normal optic chiasm and pituitary infundibulum. No rmal appearing but somewhat prominent pituitary tissue measuring 7 to 8 mm in maximal craniocaudal di mension although within normal limits for patient this age. Recommend correlation with pituitary func tion studies. Temporal lobes hippocampal formations are normal in appearance. MR/MR head wo con* [id number] IMPRESSION: 1. No evidence of restricted diffusion to suggest acute ischemia. 2. No suspicious intracranial signal abnormalities. 3. Somewhat prominent but normal-appearing pituitary tissue with convex superi or border measuring 7-8 mm in cranial caudal dimension but within normal limits for patient this age. This is likely incidental but recommend correlation with pituitary function studies. 4. No hemosiderin on the susceptibility weighted images. 5. Temporal lobes and hippocampal formations are normal in appearance. 6. No other suspicious findings.
== END 2024-12-01 15:35 | disposition home or self-care (01) ==
LOC: RAD 15:36
PROVIDERS: PCP Registered Nurse; Visit Provider Registered Nurse
DX: G43.109 Migraine with aura, not intractable, without status migrainosus (principal)
CPT/HCPCS: 70551

== ENCOUNTER → 2025-10-14 10:05 | Outpatient (BNVA) | payer BC, SELFPAY | PROVIDERS: PCP Registered Nurse; Visit Provider Registered Nurse | DX: R79.89 Other specified abnormal findings of blood chemistry (principal) | CPT/HCPCS: 80053; 80061; 82306; 82607; 84443; 84481; 85025 ==